=== PATIENT | female | born 1960 | race Caucasian/White ===

== ENCOUNTER 2018-07-16 12:47 | Emergency (ER) | payer OTHER ==
[2018-07-16 13:00] VITALS: BP 118/77
--- NOTE | 2018-07-18 07:36 | UC ---
Course/Dx - Diagnoses Provider Diagnoses: COPD (chronic obstructive pulmonary disease) Discharge - Sign-Out/Discharge Documenting (check all that apply): Post-Discharge Follow Up All imaging exams completed and their final reports reviewed: No Studies - Discharge Plan Disposition: HOME Prescriptions: Albuterol HFA INHALER* [Ventolin HFA Inhaler*] 1 - 2 puff INH Q4H PRN #1 mdi PRN Reason: Cough Budesonide/Formote 160/4.5(NF) [Symbicort 160/4.5 (NF)] 1 puff INH BID #1 mdi Patient Education Materials: COPD (Chronic Obstructive Pulmonary Disease) (ED) Referrals: Austin Corrigan, PEN OR PENCIL ASSEMBLY MACHINE OPERATOR [Primary Care Provider] - Additional Instructions: Please follow up with dr. corrigan to get your lungs re-evaluated as you may need different inhalers or possibly Oxygen. I have sent one of each of the inahlers you have requested. to obtain more you will need to call your pcp and make appt. - Billing Disposition and Condition Disposition: Home
--- NOTE | 2018-09-29 14:34 | UC ---
Respiratory Complaint HPI - HPI Summary HPI Summary: Pt here today to get refill on her medications. +wheezing. she does have pcp. - History of Current Complaint Chief Complaint: UCRespiratory Stated Complaint: MED REQUEST Time Seen by Provider: 07/16/18 12:59 Hx Obtained From: Patient ?: No Pain Intensity: 0 Pain Scale Used: 0-10 Numeric - Allergies/Home Medications Allergies/Adverse Reactions: Allergies Allergy/AdvReac Type Severity Reaction Status Date / Time No Known Allergies Allergy Verified 07/16/18 12:54 Home Medications: Home Medications Albuterol 2.5MG/3ML (0.083%)* [Ventolin 2.5 MG/3 ML NEB.JAS*] 2.5 mg INH Q4H PRN 07/16/18 [History Confirmed 07/16/18] Albuterol HFA INHALER* [Ventolin HFA Inhaler*] 2 puff INH Q4H PRN 07/16/18 [ History Confirmed 07/16/18] Buprenorp/Nalox 8-2 MG SL TAB [Suboxone 8-2 mg SL TAB*] 1 tab.sl SL DAILY [History Confirmed 07/16/18] PMH/Surg Hx/FS Hx/Imm Hx Previously Healthy: Yes Respiratory History: COPD - Surgical History Surgical History: None - Family History Known Family History: Positive: Unknown - Social History Alcohol Use: None Alcohol Amount: 1 beer every other week, maybe Substance Use Type: None Smoking Status (MU): Current Every Day Smoker Type: Cigarettes Amount Used/How Often: 1 pk/wk Length of Time of Smoking/Using Tobacco: 20 YEARS Have You Smoked in the Last Year: Yes Household Exposure Type: Cigarettes Review of Systems All Other Systems Reviewed And Are Negative: Yes Constitutional: Negative: Fever Respiratory: Positive: Shortness Of Breath - x2 wks w/ wheezing, Cough Cardiovascular: Positive: Negative. Negative: Chest Pain Physical Exam Triage Information Reviewed: Yes Appearance: Well-Appearing Vital Signs: Initial Vital Signs Temp 97.6 F 07/16/18 12:52 Pulse 75 07/16/18 12:52 Resp 16 07/16/18 12:52 BP 118/77 07/16/18 12:52 Pulse Ox 97 07/16/18 12:52 Vital Signs Reviewed: Yes Respiratory: Positive: No respiratory distress, No accessory muscle use, Wheezing Cardiovascular Exam: Normal Respiratory Course/Dx - Course Course Of Treatment: Has COPD, here for refills. rx'd meds and advised to f/u w/ pcp to re-= evaluate her lungs. good O2. - Differential Dx/Diagnosis Differential Diagnosis/HQI/PQRI: Asthma, Bronchitis, Exacerbation Of COPD Provider Diagnosis: COPD (chronic obstructive pulmonary disease) Discharge - Sign-Out/Discharge Documenting (check all that apply): Patient Departure All imaging exams completed and their final reports reviewed: No Studies - Discharge Plan Condition: Fair Disposition: HOME Prescriptions: Albuterol HFA INHALER* [Ventolin HFA Inhaler*] 1 - 2 puff INH Q4H PRN #1 mdi PRN Reason: Cough Budesonide/Formote 160/4.5(NF) [Symbicort 160/4.5 (NF)] 1 puff INH BID #1 mdi Patient Education Materials: COPD (Chronic Obstructive Pulmonary Disease) (ED) Referrals: Austin Corrigan, SPEARER [Primary Care Provider] - Additional Instructions: Please follow up with dr. corrigan to get your lungs re-evaluated as you may need different inhalers or possibly Oxygen. I have sent one of each of the inahlers you have requested. to obtain more you will need to call your pcp and make appt. - Billing Disposition and Condition Condition: FAIR Disposition: Home
== END 2018-07-16 13:30 | disposition home or self-care (01) ==
LOC: UCEAST 12:47
DX: J44.9 Chronic obstructive pulmonary disease, unspecified (principal); Z76.0 Encounter for issue of repeat prescription; F17.210 Nicotine dependence, cigarettes, uncomplicated
CPT/HCPCS: 99212; G0463

== ENCOUNTER 2019-01-12 09:23 | Emergency (ER) | payer MEDICAID, OTHER ==
[2019-01-12] MEDS ORDERED: NS 0.9% 1000 ML** 1,000 ML IV ONE (09:35)
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
[2019-01-12] MEDS ORDERED: fentaNYL* 50 MCG/ML 2 ML VIAL (100 MCG VIAL) IV SLOW PU ONE ×2 (09:53→11:21)
[2019-01-12 09:55] LABS: ABS Eosinophils 0.1 10^3/ul (0-0.6); ABS Lymphocytes 1.7 10^3/ul (1.0-4.8); ABS Monocytes 0.4 10^3/ul (0-0.8); Eosinophil % 0.5 %; Hematocrit 40 % (35-47); Hemoglobin 13.4 g/dL (12.0-16.0); Lymphocyte % 9.7 %; Mean Corpuscular HGB Conc 34 g/dL (31-36); Mean Corpuscular Hemoglobin 31 pg (27-31); Mean Corpuscular Volume 93 fL (80-97); Mean Platelet Volume 7.2 fL (7.4-10.4); Platelet Count 355 10^3/uL (150-450); Red Blood Count 4.26 10^6 /uL (3.70-4.87); Red Cell Distribution Width 15 % (10-15); White Blood Count 17.2 10^3/uL (3.5-10.8)
[2019-01-12 10:03] LABS: INR 0.98 (0.82-1.09)
[2019-01-12 10:17] LABS: ALT 30 U/L (7-52); AST 44 U/L (13-39); Albumin 4.3 g/dL (3.2-5.2); Albumin/Globulin Ratio 1.2 (1-3); Alkaline Phosphatase 84 U/L (34-104); Anion Gap 10 mmol/L (2-11); BUN/Creatinine Ratio 11.4 (8-20); Blood Urea Nitrogen 12 mg/dL (6-24); CO2 Carbon Dioxide 27 mmol/L (22-32); Calcium 9.1 mg/dL (8.6-10.3); Chloride 103 mmol/L (101-111); EGFR African American 65.6 (>60); EGFR Non-African American 54.2 (>60); Globulin 3.6 g/dL (2-4); Glucose 137 mg/dL (70-100); Potassium 3.7 mmol/L (3.5-5.0); Sodium 140 mmol/L (135-145); Total Protein 7.9 g/dL (6.4-8.9)
[2019-01-12] MEDS ORDERED: Ondansetron INJ* 2 MG/ML VIAL IV ONE (10:21)
[2019-01-12 10:23] LABS: HCG Pregnancy 1.09 mIU/mL
[2019-01-12] MEDS ORDERED: Iodixanol* (CONTRAST) 320 MG/ML 100 ML SDV IV ONE (10:32)
[2019-01-12] MEDS ORDERED: Tetan/Diph/Pertus SYR(Tdap)* 0.5 ML SYR(BOOSTRIX) use SYR contains LATEX IM ONE (10:57)
[2019-01-12 11:04] LABS: Alcohol < 10 mg/dL (<10)
[2019-01-12 11:22] VITALS: BP 140/95
== END 2019-01-12 11:18 | disposition short-term general hospital (02) ==
LOC: ED 09:23
DX: S32.691A Other specified fracture of right ischium, initial encounter for closed fracture (principal); S00.03XA Contusion of scalp, initial encounter; Z23 Encounter for immunization; V03.90XA Pedestrian on foot injured in collision with car, pick-up truck or van, unspecified whether traffic or nontraffic accident, initial encounter; Y92.410 Unspecified street and highway as the place of occurrence of the external cause; J44.9 Chronic obstructive pulmonary disease, unspecified; F17.210 Nicotine dependence, cigarettes, uncomplicated; M50.31 Other cervical disc degeneration, high cervical region
CPT/HCPCS: 36415; 70450; 70486; 71045; 71260; 72125; 72170; 74177; 80053; 80320; 84702; 85025; 85610; 86850; 86900; 86901; 90471; 90715; 96361; 96374; 96375; 99284; G0480; J2405; J3010

== ENCOUNTER 2022-11-25 12:22 | Inpatient (IN) ==
[2022-11-25] MEDS ORDERED: cefTRIAXone 1 gm/50 mL D5W 1 GM/50 ML BAG IV ONE (12:28)
[2022-11-25] MEDS ORDERED: Azithromycin 500 mg/250 ml NS 500 MG/250 ML BAG IVPB ONE (12:28)
[2022-11-25] MEDS ORDERED: Dexamethasone IV 4 MG/ML VIAL 1 ml VIAL IV SLOW PU ONE (12:28)
[2022-11-25] MEDS ORDERED: Albuterol/Ipratropium NEB.SOL (2.5/0.5 MG) 3 ML NEB.SOLN ONE (12:33)
[2022-11-25] MEDS: Albuterol/Ipratropium NEB.SOL (2.5/0.5 MG) 3 ML NEB.SOLN INH SCH ×3 (12:47→20:16)
[2022-11-25 13:09] LABS: ABS Basophils 0.1 10^3/uL (0.0-0.1); ABS Eosinophils 0.6 10^3/uL (0.0-0.5); ABS Lymphocytes 2.8 10^3/uL (1.0-4.8); ABS Monocytes 0.5 10^3/uL (0.0-0.9); ABS Neutrophils 3.8 10^3/uL (1.5-7.6); ABS Nucleated RBC 0.01 10^3/ul; Eosinophil % 7.7 %; Hematocrit 41.3 % (35-45); Hemoglobin 13.8 g/dL (11.5-14.3); Lymphocyte % 36.4 %; Mean Corpuscular Hemoglobin 33.3 pg (27-33); Mean Corpuscular Hgb Conc 33.3 g/dL (31-36); Mean Corpuscular Volume 99.9 fL (80-97); Mean Platelet Volume 8.1 fL (7.5-11.2); Nucleated Red Blood Cells % 0.1 /100 WBC (0.0-0.4); Platelet Count 230 10^3/uL (150-450); Red Blood Count 4.14 10^6/uL (3.63-4.92); Red Cell Distribution Width 13.8 % (12-17); White Blood Count 7.7 10^3/uL (3.8-11.8)
[2022-11-25 13:24] LABS: Venous Bicarbonate HCO3 29.3 mmol/L (24-28)
[2022-11-25 13:42] LABS: ALT 23 U/L (7-52); Albumin 4.8 g/dL (3.2-5.2); Albumin/Globulin Ratio 1.6 (1-3); Alkaline Phosphatase 96 U/L (35-149); Blood Urea Nitrogen 26 mg/dL (6-24); C Reactive Protein 1.61 mg/L (<8.01); CO2 Carbon Dioxide 27 mmol/L (22-32); Calcium 9.8 mg/dL (8.6-10.3); Chloride 103 mmol/L (101-111); Creatinine, Serum 1.04 mg/dL (0.51-0.95); Glucose 110 mg/dL (70-100); Sodium 142 mmol/L (135-145); Total Protein 7.8 g/dL (6.4-8.9); eGFR CKD-EPI 61.5 (>60)
[2022-11-25 13:48] LABS: Anion Gap 12 mmol/L (2-16)
[2022-11-25 14:55] LABS: Potassium Redraw 4.6 mmol/L (3.5-5.0)
[2022-11-25] MEDS ORDERED: Ondansetron 4 mg VIAL 2 MG/ML 2 ml VIAL IV PRN (15:50)
[2022-11-25] MEDS ORDERED: Albuterol 2.5mg/3 ml (0.083%) NEB.SOLN INH PRN (15:50)
[2022-11-25] MEDS: Enoxaparin 40 MG/0.4 ML SYR SUBCUT SCH (17:47)
[2022-11-25] MEDS: Nicotine PATCH 14 MG/24 HR PATCH TRANSDERM SCH (20:06)
[2022-11-25] MEDS: Mometasone/Formoter 200/5 MDI INH SCH (20:16)
[2022-11-26 06:35] LABS: ABS Lymphocytes 1.2 10^3/uL (1.0-4.8); ABS Monocytes 0.3 10^3/uL (0.0-0.9); ABS Neutrophils 3.9 10^3/uL (1.5-7.6); ABS Nucleated RBC 0.01 10^3/ul; Hematocrit 37.8 % (35-45); Hemoglobin 12.6 g/dL (11.5-14.3); Lymphocyte % 21.8 %; Mean Corpuscular Hemoglobin 33.3 pg (27-33); Mean Corpuscular Hgb Conc 33.3 g/dL (31-36); Mean Corpuscular Volume 99.9 fL (80-97); Mean Platelet Volume 7.9 fL (7.5-11.2); Nucleated Red Blood Cells % 0.2 /100 WBC (0.0-0.4); Platelet Count 224 10^3/uL (150-450); Red Blood Count 3.79 10^6/uL (3.63-4.92); Red Cell Distribution Width 13.5 % (12-17); White Blood Count 5.5 10^3/uL (3.8-11.8)
[2022-11-26 06:54] LABS: Calcium 9.5 mg/dL (8.6-10.3); Creatinine, Serum 0.89 mg/dL (0.51-0.95); Magnesium 2.1 mg/dL (1.9-2.7); eGFR CKD-EPI 74.2 (>60)
[2022-11-26] MEDS: Albuterol/Ipratropium NEB.SOL (2.5/0.5 MG) 3 ML NEB.SOLN INH SCH ×3 (07:08→19:32)
[2022-11-26] MEDS: Mometasone/Formoter 200/5 MDI INH SCH ×2 (07:08→19:32)
[2022-11-26] MEDS: Buprenorp/Nalox 8-2 MG SL TAB SL SCH (08:58)
[2022-11-26] MEDS ORDERED: SPIRIVA Respimat (tiotropium) 2.5 mcg/inh Inhaler INH SCH (09:00)
[2022-11-26] MEDS ORDERED: Buprenorp/Nalox 8-2 MG SL TAB SL SCH (09:00)
[2022-11-26] MEDS: Nicotine PATCH 14 MG/24 HR PATCH TRANSDERM SCH (09:00)
[2022-11-26] MEDS: DULoxetine DR 60 mg CAP PO SCH (09:00)
[2022-11-26] MEDS: methylPREDNISolone SOD SUCC 40 mg/ml 1 ml VIAL IV SCH ×2 (10:59→16:15)
[2022-11-26] MEDS: Enoxaparin 40 MG/0.4 ML SYR SUBCUT SCH (16:16)
[2022-11-26] MEDS: Azithromycin 500 mg/250 ml NS 500 MG/250 ML BAG IVPB SCH (16:25)
[2022-11-27] MEDS: methylPREDNISolone SOD SUCC 40 mg/ml 1 ml VIAL IV SCH ×3 (01:08→16:23)
[2022-11-27 06:10] LABS: ABS Lymphocytes 0.9 10^3/uL (1.0-4.8); ABS Monocytes 0.2 10^3/uL (0.0-0.9); ABS Neutrophils 6.9 10^3/uL (1.5-7.6); ABS Nucleated RBC 0.01 10^3/ul; Hematocrit 38.8 % (35-45); Hemoglobin 12.9 g/dL (11.5-14.3); Lymphocyte % 11.7 %; Mean Corpuscular Hemoglobin 33.4 pg (27-33); Mean Corpuscular Hgb Conc 33.2 g/dL (31-36); Mean Corpuscular Volume 100.5 fL (80-97); Mean Platelet Volume 8.2 fL (7.5-11.2); Nucleated Red Blood Cells % 0.1 /100 WBC (0.0-0.4); Platelet Count 229 10^3/uL (150-450); Red Blood Count 3.86 10^6/uL (3.63-4.92); Red Cell Distribution Width 13.7 % (12-17); White Blood Count 8.1 10^3/uL (3.8-11.8)
[2022-11-27 06:29] LABS: Calcium 9.4 mg/dL (8.6-10.3); Creatinine, Serum 0.88 mg/dL (0.51-0.95); Magnesium 2.3 mg/dL (1.9-2.7); Potassium 4.8 mmol/L (3.5-5.0); eGFR CKD-EPI 75.2 (>60)
[2022-11-27] MEDS: Albuterol/Ipratropium NEB.SOL (2.5/0.5 MG) 3 ML NEB.SOLN INH SCH ×4 (07:25→21:39)
[2022-11-27] MEDS: Mometasone/Formoter 200/5 MDI INH SCH ×2 (07:25→19:07)
[2022-11-27] MEDS: Buprenorp/Nalox 8-2 MG SL TAB SL SCH (09:10)
[2022-11-27] MEDS: DULoxetine DR 60 mg CAP PO SCH (09:11)
[2022-11-27] MEDS: Nicotine PATCH 14 MG/24 HR PATCH TRANSDERM SCH (09:12)
[2022-11-27] MEDS: Enoxaparin 40 MG/0.4 ML SYR SUBCUT SCH (15:17)
[2022-11-27] MEDS: Azithromycin 500 mg/250 ml NS 500 MG/250 ML BAG IVPB SCH (15:18)
[2022-11-28] MEDS: methylPREDNISolone SOD SUCC 40 mg/ml 1 ml VIAL IV SCH ×2 (00:32→08:26)
[2022-11-28 05:42] VITALS: BP 152/87
[2022-11-28 06:27] LABS: ABS Monocytes 0.4 10^3/uL (0.0-0.9); ABS Neutrophils 8.8 10^3/uL (1.5-7.6); ABS Nucleated RBC 0.01 10^3/ul; Hematocrit 36.9 % (35-45); Hemoglobin 12.4 g/dL (11.5-14.3); Lymphocyte % 10.2 %; Mean Corpuscular Hemoglobin 32.9 pg (27-33); Mean Corpuscular Hgb Conc 33.7 g/dL (31-36); Mean Corpuscular Volume 97.8 fL (80-97); Mean Platelet Volume 7.9 fL (7.5-11.2); Nucleated Red Blood Cells % 0.1 /100 WBC (0.0-0.4); Platelet Count 217 10^3/uL (150-450); Red Blood Count 3.77 10^6/uL (3.63-4.92); Red Cell Distribution Width 13.5 % (12-17); White Blood Count 10.2 10^3/uL (3.8-11.8)
[2022-11-28 06:57] LABS: Creatinine, Serum 0.82 mg/dL (0.51-0.95); Magnesium 2.2 mg/dL (1.9-2.7); Potassium 4.4 mmol/L (3.5-5.0); eGFR CKD-EPI 81.8 (>60)
[2022-11-28] MEDS: Mometasone/Formoter 200/5 MDI INH SCH (07:00)
[2022-11-28] MEDS: Albuterol/Ipratropium NEB.SOL (2.5/0.5 MG) 3 ML NEB.SOLN INH SCH (07:00)
[2022-11-28] MEDS: DULoxetine DR 60 mg CAP PO SCH (08:25)
[2022-11-28] MEDS: Buprenorp/Nalox 8-2 MG SL TAB SL SCH (08:26)
[2022-11-28] MEDS: Nicotine PATCH 14 MG/24 HR PATCH TRANSDERM SCH (08:26)
== END 2022-11-28 12:15 | disposition left against medical advice (07) | DRG 133 ==
LOC: EDHOLD 12:22 → ED 12:22 → EDHOLD 18:06 → MED 18:28
PROVIDERS: ADMIT Hospitalist; ATTEND Hospitalist